=== PATIENT | female | born 1945 | race Caucasian/White ===

== ENCOUNTER → 2016-07-14 | Outpatient (CLI) | payer MEDICARE, BC ==
--- NOTE | 2016-07-14 13:07 | MM ---
Reason for exam: screening (asymptomatic). Last mammogram was performed 3 years and 4 months ago. History: Patient is postmenopausal. Physical Findings: A clinical breast exam by your physician is recommended on an annual basis and results should be correlated with mammographic findings. MG 3D Screening Mammo W/Cad Bilateral CC and MLO view(s) were taken. Prior study comparison: March 14, 2013, bilateral digital screening mammo w/CAD. February 01, 2012, bilateral digital screening mammo w/CAD. October 07, 2010, bilateral digital screening mammo w/CAD. There are scattered fibroglandular densities. There is no discrete abnormality. ASSESSMENT: Negative, BI-RAD 1 RECOMMENDATION: Routine screening mammogram of both breasts in 1 year.
== END | disposition home or self-care (01) ==
LOC: RADMAMWWP 10:41
PROVIDERS: ATTEND Obstetrics & Gynecology
DX: Z12.31 Encounter for screening mammogram for malignant neoplasm of breast (principal)
CPT/HCPCS: 77063; G0202

== ENCOUNTER → 2018-06-08 | Outpatient (CLI) | payer MEDICARE, OTHER ==
--- NOTE | 2018-06-08 14:46 | US ---
EXAMINATION TYPE: US thyroid st tissue head/neck DATE OF EXAM: 06/08/2018 COMPARISON: US 2015 CLINICAL HISTORY: E04.1 THYROID NODULES. Follow up thyroid nodules, right lobe removed 7 years ago GLAND SIZE: Right Lobe: surgically removed Left Lobe: 4.6 x 1.7 x 1.3 cm Overall Parenchyma: homogeneous Isthmus Thickness: 0.3 cm NODULES RIGHT: surgically removed LEFT: # of nodules measured on left: 2 1. 1.6 X 1.3 x 1.1 cm hypoechoic cystic nodule at the upper pole with well-defined margins. This no dule is taller than wide and shows intranodular vascularity within 0.8cm posterior solid component. Prior size: no previous 2. 0.4 X 0.4 x 0.5 cm hypoechoic cystic nodule at the lower pole with well-defined margins. This nod ule is wider than tall and shows no intranodular vascularity. Prior size: no previous ISTHMUS: # of nodules measured in the isthmus: 0 Bilateral neck scanned, no evidence of lymphadenopathy. IMPRESSION: Status post right thyroidectomy. There is a vascular solid component within the largest left cystic t hyroid nodule. Fine-needle aspiration could be performed of the solid component. The smaller cyst is compatible with a benign colloid cyst.
--- NOTE | 2018-06-12 09:35 | MM ---
Reason for exam: screening (asymptomatic). Last mammogram was performed 1 year and 11 months ago. History: Patient is postmenopausal. Physical Findings: A clinical breast exam by your physician is recommended on an annual basis and results should be correlated with mammographic findings. MG 3D Screening Mammo W/Cad Bilateral CC and MLO view(s) were taken. Prior study comparison: July 14, 2016, bilateral MG 3d screening mammo w/cad. There are scattered fibroglandular densities. No significant changes when compared with prior studies. ASSESSMENT: Negative, BI-RAD 1 RECOMMENDATION: Routine screening mammogram of both breasts in 1 year.
== END | disposition home or self-care (01) ==
LOC: RADMAMWWP 13:43
PROVIDERS: ATTEND Family Medicine
DX: Z12.31 Encounter for screening mammogram for malignant neoplasm of breast (principal); E04.1 Nontoxic single thyroid nodule; E89.0 Postprocedural hypothyroidism
CPT/HCPCS: 76536; 77063; 77067

== ENCOUNTER → 2018-06-19 | Outpatient (CLI) | payer MEDICARE ==
--- NOTE | 2018-06-19 16:18 | XR ---
EXAMINATION TYPE: XR chest 2V DATE OF EXAM: 06/19/2018 COMPARISON: Prior chest x-ray 12/15/2013 HISTORY: Cough and shortness of breath TECHNIQUE: Frontal and lateral views of the chest are obtained. FINDINGS: There is no focal air space opacity, pleural effusion, or pneumothorax seen. The cardiac silhouette size is within normal limits. Postop changes are noted of the lumbar spine. The osseous s tructures are intact. IMPRESSION: No acute cardiopulmonary process.
== END | disposition home or self-care (01) ==
LOC: RADXRMAIN 15:55
PROVIDERS: ATTEND Family Medicine
DX: R05 Cough (principal); R06.02 Shortness of breath
CPT/HCPCS: 71046

== ENCOUNTER → 2018-06-28 | Day surgery (SDC) | payer BC, MEDICARE ==
[~2018-06-28] MED LIST: ALPRAZolam 0.25 MG TAB PO STA
--- NOTE | 2018-06-28 14:45 | US ---
ULTRASOUND GUIDED FNA THYROID BIOPSY: CLINICAL HISTORY: Left thyroid nodule FINDINGS: The procedure was explained to the patient. The risks, complications, benefits and alternatives were discussed and any questions were answered. Informed consent was obtained. Patient was placed supin e on the ultrasound table and prepped and draped in the usual sterile fashion. Utilizing a 25 gauge needle, five passes were made into the requested left thyroid nodule. Patient was stable throughout the procedure. Pathology is pending. All elements of maximal barrier technique were utilized. IMPRESSION: 1. Successful ultrasound guided FNA thyroid biopsy.
[2018-06-28 14:51] VITALS: PULSE 78
[2018-06-28 14:52] VITALS: BP 148/74; RESP 18
== END | disposition home or self-care (01) ==
LOC: RADPROMAIN 12:39
PROVIDERS: ATTEND Surgery
DX: E04.1 Nontoxic single thyroid nodule (principal)
CPT/HCPCS: 10005; 36415; 88173; 88305

== ENCOUNTER → 2018-09-18 | Outpatient (CLI) | payer MEDICARE ==
--- NOTE | 2018-09-18 14:38 | MR ---
EXAMINATION TYPE: MR shoulder LT wo con DATE OF EXAM: 09/18/2018 COMPARISON: Outside left shoulder x-ray August 28, 2018 HISTORY: Left shoulder pain per order. Pain since July with difficulty moving left arm per patient. TECHNIQUE: Multiplanar, multisequence imaging of the left shoulder is performed without contrast. FINDINGS: Rotator Cuff: Distal supraspinatus and infraspinatus tendons are intact. Subscapularis tendon is inta ct. Rotator cuff muscle bulk is preserved. Acromioclavicular Joint: Mild to moderate narrowing and capsular hypertrophy is present. Underlying f at plane is maintained. Distal acromion morphology is unremarkable. Glenohumeral Joint: Small glenohumeral joint effusion. Moderate narrowing. No significant spurring. Labrum: The superior labrum shows heterogeneous increased signal coronal image 11, degenerative tear is felt present. Biceps Tendon: The long head of biceps is in normal location within bicipital groove. Bone marrow signal: No focal abnormal marrow signal is appreciated. Other: No additional significant abnormality is appreciated. IMPRESSION: No rotator cuff tear. Moderate glenohumeral joint arthropathy.
== END | disposition home or self-care (01) ==
LOC: RADMRIMAIN 13:22
PROVIDERS: ATTEND Orthopaedic Surgery
DX: M19.012 Primary osteoarthritis, left shoulder (principal)

== ENCOUNTER → 2019-09-13 | Outpatient (CLI) | payer MEDICARE ==
--- NOTE | 2019-09-13 13:40 | US ---
EXAMINATION TYPE: US thyroid st tissue head/neck DATE OF EXAM: 09/13/2019 COMPARISON: NONE CLINICAL HISTORY: E04.1 Thyroid Nodule. GLAND SIZE: Right Lobe: Surgically absent Left Lobe: 4.4 x 2.0 x 1.3 cm Overall Parenchyma: homogeneous Isthmus Thickness: 0.3 cm NODULES RIGHT: surgically absent LEFT: # of nodules measured on left: 1 1. 0.7 x 0.6 x 0.6 cm hypoechoic solid nodule at the mid pole with well-defined margins. This nodul e is wider than tall and shows no intranodular vascularity. No prior Multiple additional subcentimeter nodules noted on left ISTHMUS: # of nodules measured in the isthmus: 0 Bilateral neck scanned, no evidence of lymphadenopathy. IMPRESSION: Subcentimeter left thyroid nodules. No greater than 1 cm left thyroid nodule seen. 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
== END | disposition home or self-care (01) ==
LOC: RADUSWWP 12:41
PROVIDERS: ATTEND Surgery
DX: E04.2 Nontoxic multinodular goiter (principal); Z90.89 Acquired absence of other organs
CPT/HCPCS: 76536

== ENCOUNTER → 2020-01-29 | Outpatient (CLI) | payer MEDICARE ==
--- NOTE | 2020-01-30 16:26 | BD ---
EXAMINATION TYPE: Axial Bone Density DATE OF EXAM: 01/29/2020 COMPARISON: DEXA bone scan 2014 CLINICAL HISTORY: Postmenopausal female. Height: 64.5 Weight: 198.2 FRAX RISK QUESTIONS: Alcohol (3 or more units per day): no Family History (Parent hip fracture): no Glucocorticoids (More than 3mos): no (Ex: prednisone, prednisolone, methylprednisolone, dexamethasone, and hydrocortisone). History of Fracture in Adulthood: yes Secondary Osteoporosis: 1. Type 1 Diabetes: no 2. Hyperthyroidism: no 3. Menopause before 45: no 4. Malnutrition: no 5. Chronic liver disease: no Rheumatoid Arthritis: no Current Tobacco Use: no RISK FACTORS HISTORY OF: Spine Fracture: lumbar When: 2013 Surgery to Spine/Hip(right/left)/Wrist (right/left): lumbar spine When: 2013 Family History of Osteoporosis: yes Active: yes Diet low in dairy products/other sources of calcium: no Postmenopausal woman: around age 50 Lost more than 2 inches in height since high school: no MEDICATIONS: water pill , vitamins Additional History: EXAM MEASUREMENTS: Bone mineral densitometry was performed using the [employer] System. Bone mineral density about the R hip (g/cm2): 0.861 Bone mineral density about the L hip (g/cm2): 0.849 T Score values are as follows: -----R Neck: -1.3 -----L Neck: -1.4 -----R Total: -1.1 -----L Total: -1.3 Bone mineral density has: increased 2.0 % since study of: 4..2014 Bone mineral density about the L Wrist (g/cm2): 0.569 T Score values are as follows: -----Dist. R+U: -3.4 -----Prox. R+U: -0.2 -----Radius total: -1.8 Bone mineral density : baseline IMPRESSION: Osteopenia (T Score between -2.5 and -1). There is slightly increased risk of fracture and the patient may be considered for treatment. Re-Screen 2-5 years. NOTE: T-SCORE=SD OF THE YOUNG ADULT MEAN.
== END | disposition home or self-care (01) ==
LOC: RADBDWWP 16:16
PROVIDERS: ATTEND Family Medicine
DX: M85.80 Other specified disorders of bone density and structure, unspecified site (principal); Z78.0 Asymptomatic menopausal state
CPT/HCPCS: 77080

== ENCOUNTER → 2020-02-14 | Outpatient (CLI) | payer MEDICARE ==
--- NOTE | 2020-02-18 08:11 | MM ---
Reason for exam: screening (asymptomatic). Last mammogram was performed 1 year and 8 months ago. History: Patient is postmenopausal. Physical Findings: A clinical breast exam by your physician is recommended on an annual basis and results should be correlated with mammographic findings. MG 3D Screening Mammo W/Cad Bilateral CC and MLO view(s) were taken. Prior study comparison: June 08, 2018, bilateral MG 3d screening mammo w/cad. July 14, 2016, bilateral MG 3d screening mammo w/cad. There are scattered fibroglandular densities. No significant changes when compared with prior studies. ASSESSMENT: Negative, BI-RAD 1 RECOMMENDATION: Routine screening mammogram of both breasts in 1 year.
== END | disposition home or self-care (01) ==
LOC: RADMAMWWP 13:31
PROVIDERS: ATTEND Family Medicine
DX: Z12.31 Encounter for screening mammogram for malignant neoplasm of breast (principal)
CPT/HCPCS: 77063; 77067

== ENCOUNTER → 2020-03-09 | Outpatient (CLI) | payer MEDICARE ==
--- NOTE | 2020-03-09 16:04 | MR ---
EXAMINATION TYPE: MR knee RT wo con DATE OF EXAM: 03/09/2020 COMPARISON: None HISTORY: Rt knee pain, lump on internal side of rt knee TECHNIQUE: Multiplanar, multisequence imaging of the right knee is performed without IV contrast. FINDINGS: MEDIAL MENISCUS: Oblique tear posterior horn medial meniscus extends to the tibial surface. The anter ior horn and body are intact. LATERAL MENISCUS: Anterior and posterior horns are intact without tear. CRUCIATE LIGAMENTS: The anterior and posterior cruciate ligaments are intact and unremarkable. COLLATERAL LIGAMENTS: The medial collateral ligament and lateral collateral ligament complex are inta ct and unremarkable. EXTENSOR MECHANISM: Visualized quadriceps and patellar tendons are intact. EFFUSION: Small patellar joint effusion noted. POPLITEAL CYST: No popliteal/kumar cyst. TRICOMPARTMENT SPACES: Mild medial tibiofemoral joint space narrowing. CARTILAGE: Intact BONE MARROW SIGNAL: Distal femoral bone infarct is noted. OTHER: No additional significant abnormality is appreciated. IMPRESSION: 1. Oblique tear posterior horn medial meniscus. 2. Small joint effusion. 3. Degenerative narrowing medial tibiofemoral joint space. 4. Distal femoral bone infarct.
== END | disposition home or self-care (01) ==
LOC: RADMRIMAIN 13:18
PROVIDERS: ATTEND Orthopaedic Surgery
DX: S83.241A Other tear of medial meniscus, current injury, right knee, initial encounter (principal); M17.11 Unilateral primary osteoarthritis, right knee; M87.851 Other osteonecrosis, right femur

== ENCOUNTER 2020-09-10 10:23 | Day surgery (SDC) | payer MEDICARE ==
[2020-09-08 10:26] VITALS: BMI 32.4
--- NOTE | 2020-09-09 16:57 | HP ---
HISTORY AND PHYSICAL DATE OF SURGERY: 09/10/2020 Zuleika Abad is a 75-year-old patient seen with progressive right knee pain. We discussed options. She elected to proceed with arthroscopy. Consent was obtained. PAST MEDICAL HISTORY: Hypertension. PAST SURGICAL HISTORY: Appendectomy, lumbar spine surgery. DAILY MEDICATIONS: Flexeril, triamterene/hydrochlorothiazide. ALLERGIES: VALIUM. SOCIAL HISTORY: She denies tobacco use. PHYSICAL EVALUATION OF THE RIGHT KNEE: Her range of motion is negative 2/3 to 120. Mild effusion. Tenderness, medial joint line. Positive medial Shakira's. Ligaments are stable. Hip rotation is without pain. Distal neurovascular exam is intact. RADIOGRAPHS: Right knee radiographs revealed moderate medial, moderate lateral, moderate to severe patellofemoral compartment osteoarthritis. MRI of the right knee revealed medial meniscal tear. IMPRESSION: 1. Internal derangement of right knee with medial meniscal tear. 2. Hypertension. PLAN: Right knee arthroscopy with partial meniscectomy and debridement. MMODL / IJN: [id number] /
[~2020-09-10 10:23] MED LIST changes: -ALPRAZolam 0.25 MG TAB PO STA; +DEXAMETHASONE SOD PHOSPHATE 4 MG/ML 1 ML VIAL IV ONE; +HYDROmorphone 0.5 MG/0.5 ML SYRINGE IVP PRN; +LACTATED RINGERS 1,000 ML IV SCH; +LIDOCAINE 1% (10MG/ML) FOR IV START INTRADERMA PRN; +ONDANSETRON 4 MG/2 ML VIAL IVP ONE
[2020-09-10] MEDS ORDERED: LIDOCAINE 1% (10MG/ML) FOR IV START SQ ONE (10:52)
[2020-09-10] MEDS ORDERED: PROPOFOL 10 MG/ML 20 ML VIAL IV ONE (10:55)
[2020-09-10] MEDS ORDERED: fentaNYL (PF) 50 MCG/ML 2 ML AMP ONE (10:55)
[2020-09-10] MEDS ORDERED: LIDOCAINE 1% INJ 10MG/ML (20 ML MDV) ONE (10:55)
[2020-09-10] MEDS ORDERED: MIDAZOLAM 2 MG/2 ML VIAL ONE (10:55)
[2020-09-10] MEDS ORDERED: BUPIVACAINE (PF) 0.25% 30 ML VIAL SQ ONE ×2 (11:12→11:34)
[2020-09-10 11:56] VITALS: TEMP 98.1
--- NOTE | 2020-09-10 11:59 | P.OP ---
Date of Procedure: 09/10/20 Preoperative Diagnosis: Internal derangement right knee Postoperative Diagnosis: 1. Tear lateral meniscus right knee 2. Grade 4 chondromalacia patella right knee 3. Reactive synovitis medial, lateral and suprapatellar compartments right knee Procedure(s) Performed: 1. Arthroscopic partial lateral meniscectomy right knee 2. Arthroscopic chondroplasty patella right knee 3. Arthroscopic partial synovectomy medial, lateral and suprapatellar compartm ents right knee Anesthesia: GRAEMEA, local Surgeon: Xavi Vallejo Estimated Blood Loss (ml): 7 Pathology: none sent Condition: stable Disposition: PACU Indications for Procedure: 75-year-old patient seen with progressive right knee pain. After treatment options were discussed, she elected to proceed with arthroscopy. Operative Findings: See description of procedure Description of Procedure: Patient was taken to the operative suite. Patient underwent a general anesthetic by the department of anesthesia. Patient was given preoperative antibiotics. The right lower extremity was placed in a well-padded arthroscopic leg hampton. The right leg was prepped and draped in the normal sterile orthopedic fashion. A lateral parapatellar and suprapatellar incision was made. Trochars were inserted. Arthroscopy was initiated. Suprapatellar pouch revealed diffuse thick reactive synovitis. The patellofemoral joint appeared to articulate congruently. There was grade 3/4 chondromalacia of the patella with some osteochondral tears present. The scope was guided into the medial gutter. No loose bodies or plica were identified. The scope was then guided into the medial compartment. A medial parapatellar incision was made. Trocar inserted followed by probe. There was some mild fraying along the posterior aspect of the medial meniscus. There were grade 1/2 chondromalacia changes of the medial compartment with no osteochondral tears present. There was thick reactive synovitis anteriorly. I introduced a motorized shaver. I performed a partial synovectomy decompressing the thick reactive synovitis and debrided some of the superficial fraying of the meniscus posteriorly. The shaver was removed. There was good decompression of the synovitis. Scope and probe were then guided into the intercondylar notch. Cruciates were identified, probed and found to be stable. The scope and probe were then guided into lateral compartment. There was a complex tear of the lateral meniscus involving the anterior horn and midbody. There were grade 2 chondromalacia changes of the lateral femoral condyle and grade 2/3 chondral changes of the tibial plateau. There was thick reactive synovitis anteriorly. I performed a partial lateral meniscectomy getting down to stable meniscal tissue. I performed a partial synovectomy decompressing the thick reactive synovitis. The residual meniscus was stable. There was good decompression of the synovitis. The scope was in guided back into the suprapatellar compartment. I introduced a motorized shaver into the suprapatellar compartment. I debrided some piecemeal fragments of meniscus I encountered. I performed a chondroplasty of the patella getting down to stable osteochondral tissue. I performed a partial synovectomy decompressing the thick reactive synovitis. The shaver was removed. The residual osteochondral surface of the patella was stable. There was an area of exposed bone present. There was good decompression of synovitis. I took one more look on the entire knee, no residual debris. Instruments were now removed from the joint. The joint was infiltrated with .25% Marcaine. Steri-Strips were applied to the portal sites. Sterile dressings were applied. The patient was placed into a HALEY hose. No tourniquet was utilized. The patient was awakened, transferred to a bed and taken to recovery stable satisfactory condition.
[2020-09-10] MEDS ORDERED: traMADol 50 MG TAB ONE (13:18)
[2020-09-10] MEDS ORDERED: traMADol 50 MG TAB PO ONE (13:20)
[2020-09-10 13:36] VITALS: BP 134/64; PULSE 80; RESP 19
== END 2020-09-10 14:03 | disposition home or self-care (01) ==
LOC: OR 10:23
PROVIDERS: ATTEND Orthopaedic Surgery
DX: S83.281A Other tear of lateral meniscus, current injury, right knee, initial encounter (principal); I10 Essential (primary) hypertension; Z88.8 Allergy status to other drugs, medicaments and biological substances; M23.91 Unspecified internal derangement of right knee; Z79.899 Other long term (current) drug therapy; Z88.0 Allergy status to penicillin
CPT/HCPCS: 29881; 29879; 29876; J2250; J1100; J0690; J2405; J2001; J3010; J2704

== ENCOUNTER → 2021-01-19 | Outpatient (CLI) | payer MEDICARE ==
--- NOTE | 2021-01-20 07:15 | US ---
EXAMINATION TYPE: US thyroid st tissue head/neck DATE OF EXAM: 01/19/2021 COMPARISON: US CLINICAL HISTORY: E04.1 thyroid nodule. GLAND SIZE: Right Lobe: Surgically absent cm Left Lobe: 4.3 x 1.5 x 1.6 cm Overall Parenchyma: homogeneous Isthmus Thickness: 0.3 cm NODULES RIGHT: # of nodules measured on right: 0 LEFT: # of nodules measured on left: 1. 0.9 X 0.7 x 0.7 cm, mid, solid or almost completely solid, nodule, which is wider than tall, wit h smooth margins, without echogenic foci. Prior size: 0.7 x 0.6 x 0.6 cm ISTHMUS: # of nodules measured in the isthmus: 0 Bilateral neck scanned, no evidence of lymphadenopathy. IMPRESSION: 1. Surgical absence right thyroid lobe. 2. Subcentimeter left thyroid nodule is nonspecific
== END | disposition home or self-care (01) ==
LOC: RADUSWWP 16:08
PROVIDERS: ATTEND Family Medicine
DX: E04.1 Nontoxic single thyroid nodule (principal)
CPT/HCPCS: 76536

== ENCOUNTER → 2021-05-19 | Outpatient (CLI) | payer MEDICARE ==
--- NOTE | 2021-05-21 09:20 | MM ---
Reason for exam: screening (asymptomatic). Last mammogram was performed 1 year and 3 months ago. History: Patient is postmenopausal. Physical Findings: A clinical breast exam by your physician is recommended on an annual basis and results should be correlated with mammographic findings. MG 3D Screening Mammo W/Cad Bilateral CC and MLO view(s) were taken. Prior study comparison: February 14, 2020, bilateral MG 3d screening mammo w/cad. June 08, 2018, bilateral MG 3d screening mammo w/cad. No significant changes when compared with prior studies. ASSESSMENT: Benign, BI-RAD 2 RECOMMENDATION: Routine screening mammogram of both breasts in 1 year.
== END | disposition home or self-care (01) ==
LOC: RADMAMWWP 15:28
PROVIDERS: ATTEND Family Medicine
DX: Z12.31 Encounter for screening mammogram for malignant neoplasm of breast (principal); Z78.0 Asymptomatic menopausal state
CPT/HCPCS: 77063; 77067

== ENCOUNTER → 2022-07-28 | Outpatient (CLI) | payer MEDICARE ==
--- NOTE | 2022-07-29 07:58 | MM ---
Reason for Exam: Screening (asymptomatic). Last mammogram was performed 1 year(s) and 3 month(s) ago. Patient History: Menarche at age 13. First Full-Term at age 22. Postmenopausal. Risk Values: Bridgette 5 year model risk: 1.6%. NCI Lifetime model risk: 3.2%. Prior Study Comparison: 06/08/2018 Bilateral Screening Mammogram, [facility]. 02/14/2020 Bilateral Screening Mammogram, [facility]. 05/19/2021 Bilateral Screening Mammogram, [facility]. Tissue Density: There are scattered fibroglandular densities. Findings: Analyzed By CAD. There is benign appearing vascular calcification bilaterally redemonstrated. There is no suspicious group of microcalcifications or new suspicious mass in either breast. Overall Assessment: Negative, BI-RAD 1 Management: Screening Mammogram of both breasts in 1 year. A clinical breast exam by your physician is recommended on an annual basis and results should be correlated with mammographic findings. Electronically signed and approved by: Dylan Sanches M.D.
== END | disposition home or self-care (01) ==
LOC: RADMAMWWP 14:33
PROVIDERS: ATTEND Family Medicine
DX: Z12.31 Encounter for screening mammogram for malignant neoplasm of breast (principal); Z78.0 Asymptomatic menopausal state
CPT/HCPCS: 77063; 77067

== ENCOUNTER → 2022-12-13 | Outpatient (CLI) | payer MEDICARE ==
--- NOTE | 2022-12-13 12:23 | CT ---
EXAMINATION TYPE: CT lumbar spine wo con CT DLP: 1108.7 mGycm, Automated exposure control for dose reduction was used. DATE OF EXAM: 12/13/2022 11:13 AM COMPARISON: CT lumbar spine 12/15/2013. 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 Soft tissue and bone windows in coronal and sagittal planes were obtained and reviewed. FINDINGS: Alignment: There are 5 lumbar type vertebral bodies. Minimal S-shaped scoliotic curvature. Bone: No evidence of acute fracture is identified. Postsurgical changes from posterior fusion with b ilateral pedicular screws and rods involving L2-L4. Laminectomy changes identified. Hardware appears intact. Vertebral augmentation of prior L3 vertebral body fracture identified. There is 4 mm retropul ellie at this level. This creates streak artifact which limits evaluation. Multilevel facet arthropath y. Degenerative changes of both SI joints. Schmorl's node involving the inferior endplate of the L1 v ertebral body. Discs: T12-L1: No spinal canal or neural foraminal stenosis is identified. L1-L2: No spinal canal or neural foraminal stenosis is identified. L2-L3: Broad-based disc bulge without significant effacement of anterior thecal sac. The neural briseida en are patent bilaterally. L3-L4: Broad-based disc bulge with mild effacement of the anterior thecal sac. Mild bilateral neural foraminal stenosis. L4-L5: Broad-based disc bulge with ligament of flavum buckling and facet arthropathy contribute to m oderate central canal stenosis. Moderate bilateral neural foraminal stenosis. L5-S1: Disc is round along its posterior without significant effacement of anterior thecal sac. Bilat eral facet arthropathy. The neural foramen are patent bilaterally. Other: Multiple bilateral renal sinus cysts. IMPRESSION: 1. No evidence of acute fracture of the lumbar spine. 2. Post surgical changes from L2 through L4 with laminectomy changes and vertebral augmentation kearns es of previously seen L3 fracture. Hardware appears intact. 3. Multilevel degenerative disc disease and facet arthropathy as described above. This is most promin ent at L4-L5 with moderate central canal stenosis.
== END | disposition home or self-care (01) ==
LOC: RADCTMAIN 10:53
PROVIDERS: ATTEND Orthopaedic Surgery
DX: M47.817 Spondylosis without myelopathy or radiculopathy, lumbosacral region (principal); M51.36 Other intervertebral disc degeneration, lumbar region; M48.061 Spinal stenosis, lumbar region without neurogenic claudication
CPT/HCPCS: 72131

== ENCOUNTER → 2023-03-31 | Outpatient (CLI) | payer MEDICARE ==
--- NOTE | 2023-04-01 07:20 | MR ---
EXAMINATION TYPE: MR lumbar spine wo con DATE OF EXAM: 03/31/2023 COMPARISON: CT lumbar spine December 13, 2022 HISTORY: Low back pain, fracture. History of surgery. TECHNIQUE: Multiplanar, multisequence imaging of the lumbar spine is performed without IV contrast. FINDINGS: Sagittal images of the lumbar spine redemonstrates artifact from vertebroplasty and moderat e height loss involving the L3 vertebra. Alignment remains satisfactory. Multilevel disc desiccation is redemonstrated. Mild disc space narrowing L3-L4 level redemonstrated. Artifact from posterior intr apedicular rods and screws L2-L4 level bilaterally is redemonstrated. The conus medullaris is somewh at high in position ending at mid T12 level. No abnormal signal is noted. Bone Marrow signal intensit y is preserved. Axial images show T12-L1 level to appear within normal limits. Axial images at L1-L2 level show artif act from posterior surgical change otherwise appear unremarkable. Axial images at L2-L3 level and L3-L4 level are nondiagnostic due to artifact from surgical change. Axial images at L4-L5 level shows moderate broad-based disc bulge effacing the anterior thecal sac. T here is moderate facet arthropathy and ligamentum flavum hypertrophy effacing the posterior left thec al sac. Most prominent spinal canal stenosis at this level axial image 8. Bilateral neural foramina a re patent. Axial images at L5-S1 level shows [id number] facet arthropathy bilaterally. No large disc herni ation. Spinal canal is preserved. Bilateral neural foramina are patent. There are multiple central thin-walled peripelvic cysts in both kidneys redemonstrated mimicking bila teral hydronephrosis. IMPRESSION: Postsurgical change to the L2-L4 levels redemonstrated. There is vertebroplasty and fusio n at site of moderate compression type fracture. Multilevel degenerative changes are seen as detailed above. Most prominent findings noted at L4-L5 level as detailed above.
== END | disposition home or self-care (01) ==
LOC: RADMRIMAIN 19:49
PROVIDERS: ATTEND Orthopaedic Surgery
DX: M47.817 Spondylosis without myelopathy or radiculopathy, lumbosacral region (principal); Z98.890 Other specified postprocedural states
CPT/HCPCS: 72148

== ENCOUNTER → 2023-05-04 | Outpatient (CLI) | payer MEDICARE ==
--- NOTE | 2023-05-06 14:45 | BD ---
EXAMINATION TYPE: Axial Bone Density DATE OF EXAM: 05/04/2023 CLINICAL HISTORY: 78 years old Female. ICD-10 CODE: M85.80 OT DISRD OF BONE DENSITY AND STRUCTURE, UN Height: 5 ft 4 in Weight: 191 FRAX RISK QUESTIONS: Alcohol (3 or more units per day): no Family History (Parent hip fracture): no Glucocorticoids (More than 3mos): no (Ex: prednisone, prednisolone, methylprednisolone, dexamethasone, and hydrocortisone). History of Fracture in Adulthood: yes Secondary Osteoporosis: 1. Type 1 Diabetes: no 2. Hyperthyroidism: partial removed 3. Menopause before 45: no 4. Malnutrition: no 5. Chronic liver disease: no Rheumatoid Arthritis: no Current Tobacco Use: no RISK FACTORS HISTORY OF: Surgery to Spine/Hip(right/left)/Wrist (right/left): lumbar surg When: 2013 Family History of Osteoporosis: no Active: yes Diet low in dairy products/other sources of calcium: no Postmenopausal woman: yes Take estrogen and/or progesterone medications: no Lost more than 2 inches in height since high school: no Frequent falls: no Poor Health: good Hyperparathyroidism: no Adrenal Insufficiency: no MEDICATIONS: Additional Medications: h2o pill, Additional History: EXAM MEASUREMENTS: Bone mineral density about the R hip (g/cm2): 0.814 Bone mineral density about the L hip (g/cm2): 0.774 T Score values are as follows: -----R Neck: -1.6 -----L Neck: -1.9 -----R Total: -1.3 -----L Total: -1.2 Z Score values are as follows: -----R Neck: -0.1 -----L Neck: -0.4 -----R Total: 0.1 -----L Total: 0.1 Bone mineral density has: decreased -1.0 % since study of: 2019 Bone mineral density about the L Wrist (g/cm2): 0.562 T Score values are as follows: -----Dist. R+U: -3.5 -----Prox. R+U: -0.1 -----Radius total: -1.9 Z Score values are as follows: -----Dist. R+U: -1.0 -----Prox. R+U: 2.3 -----Radius total: 0.6 Bone mineral density has: increased 0.6 % since study of: 2019 FRAX%s: The graph provided illustrates a 19.6 % chance for a major osteoporotic fx and a 4.6 % chance for the hips probability for fx in 10 years time. IMPRESSION: Osteoporosis (T Score less than -2.5). There is increased fracture risk and therapy is usually indicated based on age. Re-Screen 1-2 years. NOTE: T-SCORE=SD OF THE YOUNG ADULT MEAN.
== END | disposition home or self-care (01) ==
LOC: RADBDWWP 12:58
PROVIDERS: ATTEND Family Medicine
DX: M81.0 Age-related osteoporosis without current pathological fracture (principal); M85.89 Other specified disorders of bone density and structure, multiple sites; Z78.0 Asymptomatic menopausal state
CPT/HCPCS: 77080

== ENCOUNTER → 2023-08-21 | Outpatient (CLI) | payer MEDICARE ==
--- NOTE | 2023-08-21 17:41 | US ---
EXAMINATION TYPE: US thyroid st tissue head/neck DATE OF EXAM: 08/21/2023 COMPARISON: 01/19/2021. CLINICAL INDICATION: Female, 78 years old with history of E04.1 thyroid nodules; rt lobe removed left thyroid nodule. GLAND SIZE: Right Lobe: Surgically absent Left Lobe: 4.4 x 1.4 x 1.5 cm Overall Parenchyma: heterogeneous Isthmus Thickness: .3 cm NODULES RIGHT: # of nodules measured on right: 0 LEFT: # of nodules measured on left: 2 1. 0.5 X 0.3 x 0.6 cm, lower , Prior size: 0.4 x 0.4 x 0.5 cm TIRADS Score: 3 TIRADS Category 3: Composition: Mixed cystic and solid (1 point). Echogenicity: Hypoechoic (2 points). Shape: Wider than tall (0 points). Margin: Smooth (0 points). Echogenic foci: None or large comet-tail artifacts (0 points) Recommendation: If >2.5cm: FNA; If >1.5cm: Follow up at 1,3,5 years 2. 1.0 X 0.7 x 0.8 cm, upper , Prior size: 0.9 x 0.7 x 0.7 cm TIRADS Score: 4 TIRADS Category 4: Composition: Solid or almost completely solid (2 points). Echogenicity: Hypoechoic (2 points). Shape: Wider than tall (0 points). Margin: Smooth (0 points). Echogenic foci: None or large comet-tail artifacts (0 points) Recommendation: If >1.5cm: FNA; If >1cm: Follow up at 1,2, 3,5 years ISTHMUS: # of nodules measured in the isthmus: 0 Bilateral neck scanned, no evidence of lymphadenopathy. IMPRESSION: Thyroid nodules that meet criteria for follow-up.
--- NOTE | 2023-08-23 08:48 | MM ---
Reason for Exam: Screening (asymptomatic). Last screening mammogram was performed 12 month(s) ago. Patient History: Menarche at age 13. First Full-Term at age 22. Postmenopausal. Patient used Hormonal Contraceptives for 1 year. Risk Values: Bridgette 5 year model risk: 1.6%. NCI Lifetime model risk: 3.0%. Prior Study Comparison: 02/14/2020 Bilateral Screening Mammogram, [facility]. 05/19/2021 Bilateral Screening Mammogram, [facility]. 07/28/2022 Bilateral MG 3D screening mammo w/cad, [facility]. Tissue Density: There are scattered areas of fibroglandular density. Findings: Analyzed By CAD. Right breast: There is no suspicious group of microcalcifications or new suspicious mass. Left breast: There is no suspicious group of microcalcifications or new suspicious mass. Overall Assessment: Negative, BI-RAD 1 Management: Screening Mammogram of both breasts in [address] [facility] will attempt to contact patient to return for supplemental views and ultrasound if indicated. Patient should continue monthly self-breast exams. A clinical breast exam by your physician is recommended on an annual basis. This exam should not preclude additional follow-up of suspicious palpable abnormalities. Note on Bridgette scores and lifetime risk: 1. A Bridgette score greater than 3% is considered moderate risk. If this is the case, consider specialist referral to assess eligibility for a risk reducing agent. 2. If overall lifetime risk for the development of breast cancer is 20% or higher, the patient may qualify for future screening with alternating mammogram and breast MRI. Electronically signed and approved by: Richard Esteves DO
== END | disposition home or self-care (01) ==
LOC: RADMAMWWP 14:45
PROVIDERS: ATTEND Family Medicine
DX: Z12.31 Encounter for screening mammogram for malignant neoplasm of breast (principal); E04.2 Nontoxic multinodular goiter
CPT/HCPCS: 76536; 77063; 77067

== ENCOUNTER 2023-10-16 07:04 | Day surgery (SDC) | payer MEDICARE ==
[2023-10-11 15:53] VITALS: BMI 31.6
[2023-10-16] MEDS ORDERED: LIDOCAINE 1% (10MG/ML) FOR IV START INTRADERMA PRN (07:18)
[2023-10-16] MEDS ORDERED: LACTATED RINGERS 1,000 ML IV SCH (07:18)
[2023-10-16] MEDS: IV FLUID CONTINUATION 1,000 ML IV ONE (07:40)
[2023-10-16 07:50] VITALS: TEMP 98.9
[2023-10-16] MEDS ORDERED: PROPOFOL 10 MG/ML 20 ML VIAL IV ONE (07:53)
--- NOTE | 2023-10-16 08:24 | P.GSHP ---
History of Present Illness H&P Date: 10/16/23 Chief Complaint: positive colon guard test this is a 78-year-old female had a recent positive colon guard test. Patient resents today for colonoscopy. Patient denies any significant check. Past Medical History Past Medical History: Hypertension, Thyroid Disorder Additional Past Medical History / Comment(s): thyroid nodule, irregular heart rate. History of Any Multi-Drug Resistant Organisms: None Reported Past Surgical History: Appendectomy Additional Past Surgical History / Comment(s): thyroid surgery, cataract surgery. Past Anesthesia/Blood Transfusion Reactions: No Reported Reaction Smoking Status: Never smoker - Past Family History Mother Family Medical History: No Reported History Father Family Medical History: Cancer Sister(s) Family Medical History: Cancer Medications and Allergies Home Medications Medication Instructions Recorded Confirmed Type Biotin 5,000 mcg PO DAILY 06/21/18 10/11/23 History Calcium Carbonate/Vitamin D3 1 each PO DAILY 06/21/18 10/16/23 History [Caltrate 600 Plus D3 Tablet] Multivit-Min/Iron/Folic/Lutein 1 each PO DAILY 06/21/18 10/11/23 History [Centrum Silver Women Tablet] Triamterene-Hctz 37.5-25Mg 1 tab PO DAILY 06/21/18 10/16/23 History [Dyazide 37.5-25 Capsule] Vit C/E/Zn/Coppr/Lutein/Zeaxan 2 each PO DAILY 06/21/18 10/11/23 History [Preservision Areds 2 Softgel] Alendronate Sodium [Fosamax] 70 mg PO Q7DAYS 10/11/23 10/11/23 History Loratadine [Claritin] 10 mg PO DAILY 10/11/23 10/16/23 History Allergies Allergy/AdvReac Type Severity Reaction Status Date / Time diazepam [From Valium] AdvReac "I was out Verified 10/11/23 15:27 of it" Penicillins AdvReac Unknown Verified 10/11/23 15:27 Surgical - Exam Vital Signs Temp Pulse BP Pulse Ox 98.9 F 73 163/78 97 10/16/23 07:48 10/16/23 07:48 10/16/23 07:48 10/16/23 07:48 - General well developed, well nourished, no distress - Eyes PERRL - ENT normal pinna - Neck no masses - Respiratory normal expansion - Cardiovascular Rhythm: regular - Abdomen Abdomen: soft, non tender Assessment and Plan Assessment: positive colon guard test. We'll perform colonoscopy.
[2023-10-16 08:26] VITALS: RESP 16
--- NOTE | 2023-10-16 08:27 | P.OP ---
Date of Procedure: 10/16/23 Preoperative Diagnosis: positive colon guard test Postoperative Diagnosis: colon polyps Procedure(s) Performed: colonoscopy Anesthesia: MAC Surgeon: Riki Benitez Pathology: other (right colon, left colon, rectal polyp) Condition: stable Disposition: PACU Description of Procedure: the patient's placed on the endoscopy table in the lateral position. She received IV sedation. Digital rectal exam was performed. This revealed no abnormalities. The flexible colonoscope was then placed patient anus and passed throughout the entire colon. The ileocecal valve was visualized. The cecum appeared normal. In the right colon was small sessile polyp. Due to the cold forcep. The transverse colon appeared normal. In the left colon another small polyp was seen. The systemic to be removed by the snare. However the polyp could not be retrieved. The scope was then brought back and sigmoid colon this appeared normal. Scope was brought back the rectum another polyp was seen was removed with the cold forcep. Scope withdrawn for patient.
[2023-10-16 08:40] VITALS: BP 172/79; PULSE 65
== END 2023-10-16 08:59 | disposition home or self-care (01) ==
LOC: ORWHC2ENDO 07:04
PROVIDERS: ATTEND Surgery
DX: D12.2 Benign neoplasm of ascending colon (principal); D12.4 Benign neoplasm of descending colon; I10 Essential (primary) hypertension; E07.9 Disorder of thyroid, unspecified; Z88.0 Allergy status to penicillin; Z90.49 Acquired absence of other specified parts of digestive tract; Z79.899 Other long term (current) drug therapy; Z88.8 Allergy status to other drugs, medicaments and biological substances
CPT/HCPCS: 45380; 45385; J2704; 88305

== ENCOUNTER 2024-06-25 11:33 | Day surgery (SDC) | payer MEDICARE ==
[2024-06-21 13:20] VITALS: BMI 32.4
[~2024-06-25 11:33] MED LIST changes: -DEXAMETHASONE SOD PHOSPHATE 4 MG/ML 1 ML VIAL IV ONE; -HYDROmorphone 0.5 MG/0.5 ML SYRINGE IVP PRN; -LACTATED RINGERS 1,000 ML IV SCH; -ONDANSETRON 4 MG/2 ML VIAL IVP ONE
[2024-06-25] MEDS: IV FLUID CONTINUATION 1,000 ML IV ONE (12:17)
[2024-06-25 12:27] VITALS: TEMP 97.9
[2024-06-25] MEDS: LACTATED RINGERS 1,000 ML IV SCH (12:47)
[2024-06-25] MEDS ORDERED: PROPOFOL 10 MG/ML 20 ML VIAL IV ONE (14:01)
[2024-06-25] MEDS ORDERED: LIDOCAINE 1% INJ 10MG/ML (20 ML MDV) ONE (14:01)
[2024-06-25 14:38] VITALS: BP 132/64; PULSE 73; RESP 17
--- NOTE | 2024-06-25 17:47 | P.PCN ---
Date of Procedure: 06/25/24 Preoperative Diagnosis: GERD Postoperative Diagnosis: Gastritis Procedure(s) Performed: EGD with Biopsy Anesthesia: MARIBEL Surgeon: Raji Ratliff Pathology: other (Antral Biopsies) Condition: stable Disposition: PACU Description of Procedure: Informed consent was obtained. The procedure, its risks, benefits, and alternatives were discussed. The patient was placed in the left lateral decubitus position. The patient was sedated. The endoscope was inserted into the oropharynx and guided under direct vision into the esophagus, stomach, and duodenum. The duodenal bulb and second portion were unremarkable. The scope was withdrawn to the stomach and retroflexed. There was no increased fluid, food or secretions in the upper gastrointestinal tract. There was very minimal, nonspecific, patchy antral erythema and evidence of gastritis. Biopsies were obtained for Helicobacter pylori. No erosions or ulcers. The scope was withdrawn to the esophagus. No Barretts or esophagitis. The patient tolerated the procedure very well. The patient was then transferred to the recovery area in good condition. There were no apparent complications.
== END 2024-06-25 15:24 | disposition home or self-care (01) ==
LOC: ORWHC2ENDO 11:33
PROVIDERS: ATTEND Surgery
DX: K29.50 Unspecified chronic gastritis without bleeding (principal); K21.9 Gastro-esophageal reflux disease without esophagitis
CPT/HCPCS: 88305; 43239; J2003; J2704